=== PATIENT | female | born 1995 | race Caucasian/White ===

== ENCOUNTER 2020-04-17 11:50 | Emergency (ER) | payer BC ==
--- NOTE | 2020-04-17 12:58 | RADIOLOGY REPORT (SQ) ---
EXAM DESCRIPTION: ANKLE RIGHT COMPLETE IMAGES COMPLETED DATE/TIME: 04/17/2020 12:49 pm REASON FOR STUDY: Injury, Swelling COMPARISON: None. NUMBER OF VIEWS: Three views. TECHNIQUE: AP, lateral, and oblique radiographic images acquired of the right ankle. LIMITATIONS: None. FINDINGS: MINERALIZATION: Normal. BONES: No acute fracture or dislocation. No worrisome bone lesions. JOINTS: No effusions. SOFT TISSUES: No soft tissue swelling. No foreign body. OTHER: No other significant finding. IMPRESSION: NEGATIVE STUDY OF THE RIGHT ANKLE. NO RADIOGRAPHIC EVIDENCE OF ACUTE INJURY. TECHNICAL DOCUMENTATION: JOB ID: [id number] 2010 [employer]- All Rights Reserved Reading location - IP/workstation name: [email or web address]
[2020-04-17] MEDS ORDERED: IBUPROFEN 600 MG TABLET PO ONE (14:05)
--- NOTE | 2020-04-17 14:17 | ER Document Report ---
Entered by JEFRY DELGADO SCRIBE 04/17/20 2083 Acting as scribe for:MANAN HERNANDEZ MD ED Extremity Problem, Lower - General Chief Complaint: Ankle Injury Stated Complaint: ANKLE INJURY Time Seen by Provider: 04/17/20 12:22 Information source: Patient Notes: This 24 year old female patient presents to the emergency department today with ankle pain. Patient states she was walking her dog earlier and the leash got caught around her legs. 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 Patient states she had a cold x14 days ago and was tested for covid due to her symptoms. Patient states these symptoms have been relieved and denies any current respiratory symptoms. Past Medical History - General Information source: Patient - Social History Smoking Status: Unknown if Ever Smoked Family History: Reviewed & Not Pertinent Patient has homicidal ideation: No Musculoskeletal Medical History: Reports Other - R ankle injury Review of Systems - Review of Systems Constitutional: No symptoms reported EENT: No symptoms reported Cardiovascular: No symptoms reported Respiratory: See HPI Gastrointestinal: No symptoms reported Genitourinary: No symptoms reported Female Genitourinary: No symptoms reported Musculoskeletal: See HPI, Other - R ankle pain Skin: No symptoms reported Hematologic/Lymphatic: No symptoms reported Neurological/Psychological: No symptoms reported -: Yes All other systems reviewed and negative Physical Exam - Vital signs Vitals: Temp Pulse Resp BP Pulse Ox 98.9 F 91 16 113/77 93 04/17/20 11:57 04/17/20 11:57 04/17/20 11:57 04/17/20 11:57 04/17/20 11:57 - General General appearance: Appears well, Alert - HEENT Head: Normocephalic, Atraumatic Eyes: Normal Pupils: PERRL - Respiratory Respiratory status: No respiratory distress Chest status: Nontender Breath sounds: Normal Chest palpation: Normal - Cardiovascular Rhythm: Regular Heart sounds: Normal auscultation Murmur: No - Abdominal Inspection: Normal Distension: No distension Bowel sounds: Normal Tenderness: Nontender - Extremities General upper extremity: Normal inspection. No: Edema Notes: Tenderness with palpation to the right ankle. Edema of the right ankle and swelling noted above the ankle. Limited range of motion due to pain. Sensation intact. - Neurological Neuro grossly intact: Yes Cognition: Normal Orientation: AAOx4 Speech: Normal - Psychological Associated symptoms: Normal affect, Normal mood - Skin Skin Temperature: Warm Skin Moisture: Dry Skin Color: Normal Course - Re-evaluation Re-evalutation: 04/17/20 14:13 Patient refused to have a tib-fib x-ray inasmuch as she says she did not want have any further radiation. - Vital Signs Vital signs: Temp Pulse Resp BP Pulse Ox 98.2 F 91 16 113/77 93 04/17/20 12:03 04/17/20 11:57 04/17/20 11:57 04/17/20 11:57 04/17/20 11:57 - Diagnostic Test Radiology reviewed: Image reviewed, Reports reviewed Radiology results interpreted by me: 04/17/20 14:13 Right ankle x-ray shows no acute process no fracture noted. Soft tissue swelling Discharge - Discharge Clinical Impression: High ankle sprain of right lower extremity Condition: Stable Disposition: HOME, SELF-CARE Instructions: Use of Crutches ([facility]), Shoaib Wrap ([facility]), Ankle Stirrup Splint ([facility]), Sprained Ankle ([facility]) Prescriptions: Ibuprofen [Ibu] 600 mg PO TID PRN #21 tablet PRN Reason: Pain Scale Of 3 Referrals: KYLE KAMINSKI DO [ACTIVE STAFF] - Follow up as needed I personally performed the services described in the documentation, reviewed and edited the documentation which was dictated to the scribe in my presence, and it accurately records my words and actions.
[2020-04-17 14:29] VITALS: BP 121/71
== END 2020-04-17 14:29 | disposition home or self-care (01) ==
LOC: ER 11:50
DX: S93.401A Sprain of unspecified ligament of right ankle, initial encounter (principal); X50.0XXA Overexertion from strenuous movement or load, initial encounter; Y93.K1 Activity, walking an animal
CPT/HCPCS: 99283